=== PATIENT | male | born 1995 | race Caucasian/White ===

== ENCOUNTER 2025-03-07 09:41 | Inpatient (IN) | payer OTHER ==
[~2025-03-07] VITALS: Ht 180.3 cm; Wt 85.9 kg
[~2025-03-07 09:41] MED LIST: AZIT250T13 PO
[2025-03-07] MEDS: AZITHROMYCIN 500 MG in IV D5W 250 ML IV ONE (10:00)
[2025-03-07 10:13] LABS: PLATELET COUNT (AUTO) 194 K/uL (150-450); RED BLOOD CELL COUNT(AUTO) 4.41 MIL/uL (4.5-6.0); RED CELL DISTRIBUTION WIDTH 13.8 % (11.5-15.0); WHITE BLOOD COUNT (AUTO) 11.2 K/uL (4.3-11.0)
[2025-03-07] MEDS ORDERED: CEFTRIAXONE 1GM BAG (ER ONLY) 50 ML IV ONE (10:15)
[2025-03-07 10:23] LABS: CALCIUM, SERUM 8.1 mg/dL (8.5-10.1); CREATININE 1.3 mg/dL (0.6-1.3); SODIUM SERUM 136 mmol/L (136-145); UREA NITROGEN, BLOOD 10 mg/dL (7-18)
[2025-03-07] MEDS: CEFTRIAXONE 1GM BAG (ER ONLY) 50 ML IV ONE (10:26)
[2025-03-07] MEDS: IV NS 0.9% 1,000 ML BAG IV ONE (10:26)
[2025-03-07 10:27] LABS: CREATINE KINASE, TOTAL 30 U/L (39-308); INR 1.31 (0.91-1.10)
[2025-03-07 10:28] LABS: ASPARTATE AMINOTRANSFERASE 13 U/L (15-37); TOTAL PROTEIN, SERUM 6.9 g/dL (6.4-8.2)
[2025-03-07 10:31] LABS: LACTIC ACID 2.7 mmol/L (0.4-2.0)
[2025-03-07 10:45] LABS: APPEARANCE,URINE CLEAR (CLEAR); BLOOD, URINE NEGATIVE Ery/uL (NEGATIVE); LEUKOCYTE ESTERASE ,URINE NEGATIVE (NEGATIVE); NITRITE, URINE NEGATIVE (NEGATIVE); UGLUCOSE TRACE mg/dL (NEGATIVE)
[2025-03-07 11:01] LABS: ADD URINE CULTURE NO; SQUAMOUS EPITHELIAL CELL,UR 0-2 /HPF (None Seen)
[2025-03-07 11:10] LABS: LYMPHOCYTES % (MANUAL) 3 % (16-48); MONOCYTES % (MANUAL) 5 % (0-11.0); NEUTROPHILS % (MANUAL) 92 (42-76)
[2025-03-07 11:11] LABS: PLATELET ESTIMATE PLATE
[2025-03-07] MEDS ORDERED: PRED20TA PO (11:31)
[2025-03-07] MEDS ORDERED: CYCL10TA9 PO (11:31)
[2025-03-07] MEDS ORDERED: MELO-105 PO (11:31)
[2025-03-07] MEDS ORDERED: ALBU8.5H8 IH (11:31)
[2025-03-07] MEDS ORDERED: Z GUARD REMEDY 4 OZ OINT TP PRN (13:00)
[2025-03-07] MEDS ORDERED: MAGNESIUM HYDROXIDE 30 ML UDC PO PRN (13:00)
[2025-03-07 13:13] LABS: MONOTEST NEGATIVE (NEGATIVE)
[2025-03-07 13:30] VITALS: BP 118/47; TEMP 98.2; O2SAT 98
[2025-03-07] MEDS: IV LR 1000 ML 1,000 ML IV PRN (15:34)
[2025-03-07 16:00] VITALS: BP 115/57; TEMP 99.2; O2SAT 98
[2025-03-07] MEDS: GUAIFENESIN/D-METHORPHAN HB 5 ML UDC PO PRN (16:28)
[2025-03-07] MEDS: HYDROCODONE/APAP 5/325MG TABLET PO PRN (16:29)
[2025-03-07 20:00] VITALS: BP 132/63; TEMP 99; O2SAT 95
[2025-03-07] MEDS: MORPHINE SULFATE INJ 4 MG/ML DISP.SYRIN IV PRN (21:29)
[2025-03-07] MEDS ORDERED: IOHEXOL-350 100 ML VIAL IV ONE (21:37)
[2025-03-07] MEDS ORDERED: IV NS 0.9% 250 ML IV ONE (21:37)
[2025-03-08] VITALS (8 sets, daily range): BP systolic 114–150; BP diastolic 64–80; TEMP 97.4–98.8; O2SAT 92–99
[2025-03-08] MEDS: IBUPROFEN 400 MG TABLET PO PRN (07:56)
[2025-03-08] MEDS: PANTOPRAZOLE 40 MG TABLET.DR PO SCH (07:57)
[2025-03-08] MEDS: AZITHROMYCIN 250 MG TABLET PO SCH (09:46)
[2025-03-08] MEDS: CEFTRIAXONE 1 G in IV D5W 50 ML IV SCH (10:19)
[2025-03-08 10:59] LABS: PLATELET COUNT (AUTO) 237 K/uL (150-450); RED BLOOD CELL COUNT(AUTO) 4.04 MIL/uL (4.5-6.0); RED CELL DISTRIBUTION WIDTH 13.9 % (11.5-15.0); WHITE BLOOD COUNT (AUTO) 10.7 K/uL (4.3-11.0)
[2025-03-08 11:24] LABS: CALCIUM, SERUM 8.5 mg/dL (8.5-10.1); CREATININE 1.1 mg/dL (0.6-1.3); NT-PRO BNP 1436.0 pg/mL (0-125); PHOSPHORUS 2.5 mg/dL (2.5-4.9); SODIUM SERUM 143.0 mmol/L (136-145); UREA NITROGEN, BLOOD 9.0 mg/dL (7-18)
[2025-03-08 11:39] LABS: ASPARTATE AMINOTRANSFERASE 13.0 U/L (15-37); TOTAL PROTEIN, SERUM 6.3 g/dL (6.4-8.2)
[2025-03-08 17:33] LABS: HIV-1/2 ANTIBODY NON REACTIVE (NONREACTIVE)
[2025-03-08] MEDS: ONDANSETRON HCL/PF 4 MG/2 ML VIAL IVP PRN (20:36)
[2025-03-08] MEDS: ALBUTEROL FS 2.5 MG/3 ML VIAL.NEB NEB PRN (23:30)
[2025-03-08] MEDS: ACETYLCYSTEINE 10% SOLN 400 MG/4 ML VIAL NEB SCH (23:35)
[2025-03-09] VITALS (10 sets, daily range): BP systolic 120–143; BP diastolic 69–85; TEMP 97.8–99; O2SAT 87–100
[2025-03-09 08:16] LABS: PLATELET COUNT (AUTO) 222 K/uL (150-450); RED BLOOD CELL COUNT(AUTO) 3.96 MIL/uL (4.5-6.0); RED CELL DISTRIBUTION WIDTH 14.1 % (11.5-15.0); WHITE BLOOD COUNT (AUTO) 10.3 K/uL (4.3-11.0)
[2025-03-09 08:53] LABS: ASPARTATE AMINOTRANSFERASE 14.0 U/L (15-37); CALCIUM, SERUM 8.6 mg/dL (8.5-10.1); CREATININE 1.1 mg/dL (0.6-1.3); PHOSPHORUS 2.6 mg/dL (2.5-4.9); SODIUM SERUM 141.0 mmol/L (136-145); TOTAL PROTEIN, SERUM 5.8 g/dL (6.4-8.2); UREA NITROGEN, BLOOD 11.0 mg/dL (7-18)
[2025-03-09 12:08] LABS: WBC, BODY FLUID 1964 /cu. mm. (0-200)
[2025-03-09 12:31] LABS: PROTEIN, BODY FLUID 2.8 G/DL
[2025-03-09] MEDS ORDERED: CEFEPIME 2 GM in IV D5W 100 ML IV SCH (13:00)
[2025-03-09] MEDS ORDERED: DOSING PER PHARMACY-VANCOMYCIN IV IV PRN (14:00)
[2025-03-09] MEDS ORDERED: DOSING PER PHARMACY-CEFEPIME IVPB IV PRN (14:00)
[2025-03-09 14:07] LABS: APPEARANCE,SPUN,BODY FLUID CLEAR (CLEAR); TOTAL VOLUME,BODY FLUID 800 mL
[2025-03-09 14:09] LABS: MACROPHAGES, BODY FLUID 0
[2025-03-09 14:10] LABS: MONOCYTES,BODY FLUID 15 %
[2025-03-09] MEDS: FLUCONAZOLE IN NS 100 MG in PREMIX 1 EA IV SCH (15:01)
[2025-03-09] MEDS: CEFEPIME 2 GM in IV D5W 100 ML IV SCH (16:06)
[2025-03-09] MEDS: VANCOMYCIN 1 GM in IV D5W 250ml IV SCH ×2 (16:55→22:17)
[2025-03-09] MEDS: DOXYCYCLINE 100 MG in IV D5W 100 ML IV SCH (20:19)
[2025-03-10] VITALS (15 sets, daily range): BP systolic 135–157; BP diastolic 78–87; TEMP 98.2–99.3; O2SAT 94–100
[2025-03-10 12:36] LABS: PLATELET COUNT (AUTO) 260 K/uL (150-450); RED BLOOD CELL COUNT(AUTO) 3.61 MIL/uL (4.5-6.0); RED CELL DISTRIBUTION WIDTH 14.0 % (11.5-15.0); WHITE BLOOD COUNT (AUTO) 8.4 K/uL (4.3-11.0)
[2025-03-10 12:42] LABS: CALCIUM, SERUM 8.4 mg/dL (8.5-10.1); CREATININE 1.0 mg/dL (0.6-1.3); SODIUM SERUM 139.0 mmol/L (136-145); UREA NITROGEN, BLOOD 13.0 mg/dL (7-18)
[2025-03-10] MEDS: POTASSIUM CHLORIDE 10 MEQ TABLET.SA PO ONE (13:49)
[2025-03-10] MEDS: ACETAMINOPHEN 325 MG TABLET PO PRN (14:44)
[2025-03-10 16:50] LABS: AMPHETAMINE, URINE NEGATIVE (NEGATIVE); BARBITURATE, URINE NEGATIVE (NEGATIVE); BENZODIAZEPINE, URINE NEGATIVE (NEGATIVE); CANNABINOID, URINE NEGATIVE (NEGATIVE); COCCAINE, URINE NEGATIVE (NEGATIVE); OPIATE, URINE NEGATIVE (NEGATIVE)
[2025-03-10] MEDS: IPRATROPIUM NEB FS 0.5 MG/2.5 ML AMPUL.NEB NEB PRN (22:48)
[2025-03-11] VITALS (13 sets, daily range): BP systolic 139–155; BP diastolic 79–89; TEMP 97.9–98.2; O2SAT 99–100
[2025-03-11 06:52] LABS: PLATELET COUNT (AUTO) 286 K/uL (150-450); RED BLOOD CELL COUNT(AUTO) 4.04 MIL/uL (4.5-6.0); RED CELL DISTRIBUTION WIDTH 13.8 % (11.5-15.0); WHITE BLOOD COUNT (AUTO) 8.1 K/uL (4.3-11.0)
[2025-03-11 07:46] LABS: CALCIUM, SERUM 8.1 mg/dL (8.5-10.1); CREATININE 0.8 mg/dL (0.6-1.3); SODIUM SERUM 142.0 mmol/L (136-145); UREA NITROGEN, BLOOD 14.0 mg/dL (7-18)
[2025-03-11 07:49] LABS: PHOSPHORUS 6.2 mg/dL (2.5-4.9)
[2025-03-11] MEDS: DOXYCYCLINE HYCLATE (100 MG) 100 MG TABLET PO SCH (08:03)
[2025-03-11 09:18] LABS: EOSINOPHILS % (MANUAL) 2 % (0-4); LYMPHOCYTES % (MANUAL) 20 % (16-48); MONOCYTES % (MANUAL) 9 % (0-11.0); NEUTROPHILS % (MANUAL) 69 (42-76); PLATELET ESTIMATE ADEQUATE
[2025-03-11] MEDS: FLUCONAZOLE (100 MG) 100 MG TABLET PO SCH (14:15)
[2025-03-11] MEDS: ALBUTEROL FS 2.5 MG/3 ML VIAL.NEB NEB SCH (20:08)
[2025-03-11] MEDS: IPRATROPIUM NEB FS 0.5 MG/2.5 ML AMPUL.NEB NEB SCH (20:08)
[2025-03-12] VITALS (14 sets, daily range): BP systolic 137–138; BP diastolic 76–92; TEMP 97.7–98.4; O2SAT 94–100
[2025-03-12 07:37] LABS: PLATELET COUNT (AUTO) 321 K/uL (150-450); RED BLOOD CELL COUNT(AUTO) 3.88 MIL/uL (4.5-6.0); RED CELL DISTRIBUTION WIDTH 13.7 % (11.5-15.0); WHITE BLOOD COUNT (AUTO) 11.7 K/uL (4.3-11.0)
[2025-03-12 09:44] LABS: PHOSPHORUS 4.0 mg/dL (2.5-4.9)
[2025-03-12] MEDS: BENZONATATE 100 MG CAPSULE PO SCH (10:53)
[2025-03-12] MEDS ORDERED: ALBUTEROL FS 2.5 MG/0.5 ML VIAL.NEB NEB PRN (11:00)
[2025-03-12 13:53] LABS: CALCIUM, SERUM 8.4 mg/dL (8.5-10.1); CREATININE 1.0 mg/dL (0.6-1.3); SODIUM SERUM 140.0 mmol/L (136-145); UREA NITROGEN, BLOOD 16.0 mg/dL (7-18)
[2025-03-12 21:06] LABS: *MYCOPLASMA PNEUMONIAE IgM <770 U/mL (0-769)
[2025-03-12 22:07] LABS: *MYCOPLASMA PNEUMONIAE IgG 311 U/mL (0-99)
[2025-03-13] VITALS (14 sets, daily range): BP systolic 121–137; BP diastolic 75–84; TEMP 98.1–98.4; O2SAT 94–100
[2025-03-13 06:07] LABS: PLATELET COUNT (AUTO) 314 K/uL (150-450); RED BLOOD CELL COUNT(AUTO) 4.10 MIL/uL (4.5-6.0); RED CELL DISTRIBUTION WIDTH 13.5 % (11.5-15.0); WHITE BLOOD COUNT (AUTO) 11.8 K/uL (4.3-11.0)
[2025-03-13 09:08] LABS: EOSINOPHILS % (MANUAL) 1 % (0-4); LYMPHOCYTES % (MANUAL) 25 % (16-48); MONOCYTES % (MANUAL) 5 % (0-11.0); NEUTROPHILS % (MANUAL) 69 (42-76); PLATELET ESTIMATE ADEQUATE
[2025-03-13 09:58] LABS: CALCIUM, SERUM 8.5 mg/dL (8.5-10.1); CREATININE 1.1 mg/dL (0.6-1.3); SODIUM SERUM 138.0 mmol/L (136-145); UREA NITROGEN, BLOOD 18.0 mg/dL (7-18)
[2025-03-13 16:07] LABS: COCCIDIOIDES Abs, IgG,EIA 0.1 EIA Units (.); COCCIDIOIDES Abs, IgM,EIA 0.1 EIA Units (.)
[2025-03-14] VITALS (7 sets, daily range): BP systolic 120–133; BP diastolic 68–76; TEMP 97.5–98.9; O2SAT 96–100
[2025-03-14 15:07] LABS: *ANA ANTI-CENTROMERE B AB <0.2 AI (0.0-0.9); *ANA ANTI-DNA(DS) AB, QN <1 IU/mL (0-9); *ANA ANTI-JO-1 <0.2 AI (0.0-0.9); *ANA ANTICHROMATIN ANTIBODY <0.2 AI (0.0-0.9); *ANA RNP ANTIBODIES 0.3 AI (0.0-0.9); *ANA SJOGREN'S ANTI-SS-A <0.2 AI (0.0-0.9); *ANA SJOGREN'S ANTI-SS-B <0.2 AI (0.0-0.9); *ANAANTI-SCLERODERMA-70 AB <0.2 AI (0.0-0.9); *ANASMITH AB <0.2 AI (0.0-0.9)
[2025-03-14 15:26] LABS: CALCIUM, SERUM 8.6 mg/dL (8.5-10.1); CREATININE 1.1 mg/dL (0.6-1.3); SODIUM SERUM 136.0 mmol/L (136-145); UREA NITROGEN, BLOOD 20.0 mg/dL (7-18)
[2025-03-14] MEDS ORDERED: IPRA3AMP23 IH (19:09)
[2025-03-14] MEDS ORDERED: PRED20TA PO (19:09)
[2025-03-14] MEDS ORDERED: LEVO750T46 PO (19:09)
== END 2025-03-14 21:04 | disposition home or self-care (01) | DRG 871 ==
LOC: ER 09:48 → TELE1 13:12 → MEDSG1 03-10 13:03
PROVIDERS: ADMIT Nurse Practitioner Family; ATTEND Nurse Practitioner Family
PROC: 0W9B3ZX Drainage of Left Pleural Cavity, Percutaneous Approach, Diagnostic (ICD-10-PCS; principal; 2025-03-09)
DX: A41.9 Sepsis, unspecified organism (principal); J15.9 Unspecified bacterial pneumonia; J96.01 Acute respiratory failure with hypoxia; E44.1 Mild protein-calorie malnutrition; J90 Pleural effusion, not elsewhere classified; E88.09 Other disorders of plasma-protein metabolism, not elsewhere classified; R65.20 Severe sepsis without septic shock; Z20.822 Contact with and (suspected) exposure to COVID-19; J45.909 Unspecified asthma, uncomplicated; Z79.51 Long term (current) use of inhaled steroids; Z79.899 Other long term (current) drug therapy; F12.91 Cannabis use, unspecified, in remission; R16.2 Hepatomegaly with splenomegaly, not elsewhere classified; E80.6 Other disorders of bilirubin metabolism; Z87.09 Personal history of other diseases of the respiratory system
CPT/HCPCS: 36415; 71045-TC; 76700-TC; 80048-TC; 80053-TC; 80076-TC; 80202-TC; 81001; 82550-TC; 83605-TC; 83615-TC; 83735-TC; 83880; 84100-TC; 85025-TC; 85027-TC; 85378-TC; 85652-TC; 85730-TC; 86140-TC; 86225; 86235; 86308-TC; 86480; 86738; 86803; 87040-TC; 87070-TC; 87075-TC; 87081-TC; 87086-TC; 87102-TC; 87205-TC; 87449; 87536; 87806; 87899; 89051-TC; 93307-TC; 94760-TC; 94799-TC; A4216; A4223; G0378; J0456; J0692; J0696; J1450; J2270; J2405; J3373; J3490; J7030; J7040; J7050; J7060; J7120; Q9967